=== PATIENT | male | born 1985 | race Caucasian/White ===

== ENCOUNTER 2018-01-19 17:39 | Emergency (ER) | payer SELFPAY | END 2018-01-19 20:39 | disposition home or self-care (01) | LOC: D.ER 17:39 | DX: S61.412A Laceration without foreign body of left hand, initial encounter (principal); W25.XXXA Contact with sharp glass, initial encounter; Y93.89 Activity, other specified; Y92.019 Unspecified place in single-family (private) house as the place of occurrence of the external cause; F17.200 Nicotine dependence, unspecified, uncomplicated ==

== ENCOUNTER 2019-06-21 12:24 | Inpatient (IN) | payer SELFPAY ==
[~2019-06-21] VITALS: Ht 182.9 cm; Wt 89.4 kg
[2019-06-21] MEDS ORDERED: PHENERGAN12.5 MG RC (12:29)
[2019-06-21 13:10] LABS: BASOPHILS 0.1 % (0-2); EOSINOPHILS 0 % (0-7); HEMATOCRIT 47.3 % (42.0-54.0); HEMOGLOBIN 18.1 g/dL (13.5-17.5); IMMATURE GRANULOCYTES 0.2 % (0-5); LYMPHOCYTES 11.6 % (15-50); MCH 34.4 pg (26.0-34.0); MCHC 38.3 g/dL (31.0-37.0); MCV 89.9 fL (80.0-100.0); MEAN PLATELET VOLUME 12.5 fL (7.4-10.4); MONOCYTES 11.8 % (2-11); NEUTROPHILS 76.3 % (40-80); PLATELET COUNT 208 10x3/uL (130-400); RBC 5.26 10x6/uL (4.20-6.10); RDW 12.2 % (11.5-14.5); WBC 12.5 10x3/uL (4.8-10.8)
[2019-06-21 13:12] LABS: ALBUMIN 4.3 g/dL (3.4-5.0); ANION GAP 17.3 mmol/L (8-16); BILIRUBIN - TOTAL 1.2 mg/dL (0.2-1.3); CALCIUM 10.3 mg/dL (8.5-10.1); CARBON DIOXIDE 30.8 mmol/L (21.0-32.0); CREATININE - SERUM 6.4 mg/dL (0.6-1.3); POTASSIUM - SERUM 3.1 mmol/L (3.5-5.1); PROTEIN - SERUM 8.7 g/dL (6.4-8.2)
[2019-06-21 13:33] LABS: TROPONIN-I 0.093 ng/mL (0.000-0.060)
[2019-06-21 14:28] LABS: CKMB 6.2 U/L (0.0-3.6); CREATINE KINASE 1355 UL (21-232)
[2019-06-21 14:30] VITALS: BP 162/97
--- NOTE | 2019-06-21 14:30 | NUR ---
URINE SPEC OBTAINED, LABELED AT BS AND SENT TO LAB
[2019-06-21 15:01] LABS: APPEARANCE HAZY (CLEAR); BACTERIA MODERATE /hpf (NONE SEEN); BILIRUBIN NEGATIVE (NEGATIVE); COLOR YELLOW (YELLOW); EPITHELIAL CELLS OCC /hpf (0-5); GLUCOSE 500 mg/dL (NEGATIVE); KETONE NEGATIVE (NEGATIVE); MUCUS <1+ /lpf (NONE SEEN); NITRITE NEGATIVE (NEGATIVE); PROTEIN TRACE mg/dL (NEGATIVE); RED CELLS - URINE 0-5 /hpf (0-5); SPECIFIC GRAVITY 1.015 (1.005-1.020); UROBILINOGEN NORMAL (NORMAL); WHITE CELLS - URINE RARE /hpf (0-5)
[2019-06-21 15:30] VITALS: BP 160/91
[2019-06-21 16:27] VITALS: BP 165/95
--- NOTE | 2019-06-21 17:00 | NUR ---
VOIDED 500 ML CLEAR YELLOW URINE VIA URINAL
[2019-06-21 17:11] VITALS: BP 144/87
[2019-06-21 18:26] VITALS: BP 159/78
--- NOTE | 2019-06-21 18:28 | NUR ---
VOIDED 400 ML VIA URINAL
--- NOTE | 2019-06-21 18:42 | NUR ---
REPORT CALLED TO CARLOS MEJÍA
--- NOTE | 2019-06-21 18:59 | NUR ---
[id number]
--- NOTE | 2019-06-21 19:15 | NUR ---
RECEIVED PATIENT FROM ER VIA W/C. SELF TRANSFERED TO BED WITHOUT DIFFICULTY. PATIENT HAS IV TO RT FA WITH NS INFUSING NS@125ML/HR. FAMILY AT BEDSIDE. PATIENT GIVEN PILLOW AND WARM BLANKET, FRESH ICE WATER OFFERED. VSS. NO S/S OF DISTRESS OBSERVED, RR EVEN AND UNLABORED ON ROOM AIR. QUICK START, MED REC, ADULT HX COMPLETED. PATIENT DENIES FURTHER NEEDS AT THIS TIME. CL IN REACH, BED LOCKED AND LOWERED. WILL CTM.
[2019-06-21 22:41] VITALS: BP 138/75; BMI 26.7
--- NOTE | 2019-06-21 23:30 | NUR ---
PLACE TELE ON PATIENT. WILL CTM.
[2019-06-22] VITALS: BP 128/67
--- NOTE | 2019-06-22 07:20 | NUR ---
REPORT RECIEVED. PT SITTING UP IN BED EATING BREAKFAST. PT HAS A R FA PIV INFUSING NS @ 100. RR EVEN AND UNLABORED. NO DISTRESS NOTED. TELEMETRY ON. BED LOCKED AND IN LOWEST POSITION. CALL LIGHT WITHIN REACH. WILL CTM.
[2019-06-22 07:47] LABS: BASOPHILS 0 % (0-2); EOSINOPHILS 0.2 % (0-7); HEMATOCRIT 42.2 % (42.0-54.0); HEMOGLOBIN 15.3 g/dL (13.5-17.5); IMMATURE GRANULOCYTES 0.2 % (0-5); LYMPHOCYTES 18.8 % (15-50); MCH 33.8 pg (26.0-34.0); MCHC 36.3 g/dL (31.0-37.0); MEAN PLATELET VOLUME 12.3 fL (7.4-10.4); MONOCYTES 12.4 % (2-11); NEUTROPHILS 68.4 % (40-80); PLATELET COUNT 203 10x3/uL (130-400); RBC 4.52 10x6/uL (4.20-6.10); RDW 12.2 % (11.5-14.5); WBC 10.1 10x3/uL (4.8-10.8)
[2019-06-22 07:49] LABS: MCV 93.4 fL (80.0-100.0)
[2019-06-22 08:10] VITALS: BP 145/79
[2019-06-22 08:24] LABS: ALBUMIN 3.4 g/dL (3.4-5.0); ALKALINE PHOSPHATASE 74 U/L (46-116); BILIRUBIN - TOTAL 1.28 mg/dL (0.2-1.3); CALC OSMOLALITY 299 mosm/kg (275-300); CALCIUM 8.6 mg/dL (8.5-10.1); CARBON DIOXIDE 28.8 mmol/L (21.0-32.0); CHLORIDE - SERUM 104 mmol/L (98-107); GLUCOSE 98 mg/dL (74-106); MAGNESIUM - SERUM 2.5 mg/dL (1.8-2.4); PHOSPHOROUS 3.1 mg/dL (2.5-4.9); POTASSIUM - SERUM 3.3 mmol/L (3.5-5.1); SODIUM 141 mmol/L (136-145); TROPONIN-I 0.058 ng/mL (0.000-0.060); UREA NITROGEN 66 mg/dL (7-18)
[2019-06-22 08:26] LABS: ALT (SGPT) 35 U/L (10-68); CREATINE KINASE 626 UL (21-232); CREATININE - SERUM 3.3 mg/dL (0.6-1.3); eGFR NON AFRICAN AMERICAN 23 mL/min (90-120)
[2019-06-22 09:11] VITALS: Ht 182.9 cm; Wt 89.4 kg
[2019-06-22 09:44] LABS: CKMB 1.7 U/L (0.0-3.6); CREATINE KINASE 590 UL (21-232)
[2019-06-22 09:57] LABS: TROPONIN-I 0.075 ng/mL (0.000-0.060)
[2019-06-22 10:53] LABS: UDS - AMPHET NEGATIVE QUAL (NEGATIVE); UDS - BARB NEGATIVE QUAL (NEGATIVE); UDS - BENZO NEGATIVE QUAL (NEGATIVE); UDS - COCAINE NEGATIVE QUAL (NEGATIVE); UDS - OPIATE NEGATIVE QUAL (NEGATIVE); UDS - PCP NEGATIVE QUAL (NEGATIVE); UDS - THC POSITIVE QUAL (NEGATIVE)
--- NOTE | 2019-06-22 15:11 | NUR ---
I have reviewed this patient and I concur with the Shift Assessment completed by the Licensed Practical Nurse today this shift.
--- NOTE | 2019-06-22 19:30 | NUR ---
PATIENT RESTING IN BED WITH NO S/S OF DISTRESS. PATIENT DENIES NEEDS AT THIS TIME. BED IN LOWEST POSITION AND CALL LIGHT WITHIN REACH. ENCOURAGED THE PATIENT TO CALL IF HE HAS NEEDS. WILL CONTINUE TO MONITOR.
[2019-06-22 19:44] VITALS: BP 165/72
[2019-06-22 23:47] VITALS: BP 127/66
[2019-06-23 04:35] LABS: BASOPHILS 0.1 % (0-2); EOSINOPHILS 0.5 % (0-7); HEMATOCRIT 39.3 % (42.0-54.0); HEMOGLOBIN 13.9 g/dL (13.5-17.5); IMMATURE GRANULOCYTES 0.3 % (0-5); MCH 33.6 pg (26.0-34.0); MCHC 35.4 g/dL (31.0-37.0); MCV 94.9 fL (80.0-100.0); MONOCYTES 9.3 % (2-11); NEUTROPHILS 56.8 % (40-80); PLATELET COUNT 182 10x3/uL (130-400); RBC 4.14 10x6/uL (4.20-6.10); RDW 11.9 % (11.5-14.5); WBC 7.7 10x3/uL (4.8-10.8)
--- NOTE | 2019-06-23 04:35 | NUR ---
NOTIFIED BY TELE THAT PATIENT'S HR IS 40. PATIENT ASYMPTOMATIC AND STATES HE FEELS FINE
[2019-06-23 04:40] VITALS: BP 142/91
[2019-06-23 04:47] LABS: ANION GAP 10.1 mmol/L (8-16); CALCIUM 8.6 mg/dL (8.5-10.1); CARBON DIOXIDE 28.6 mmol/L (21.0-32.0); POTASSIUM - SERUM 3.7 mmol/L (3.5-5.1)
[2019-06-23 04:50] LABS: CREATININE - SERUM 1.9 mg/dL (0.6-1.3)
--- NOTE | 2019-06-23 07:30 | NUR ---
REPORT RECIEVED. PT SITTING UP IN BED EATTING BREAKFAST. RR EVEN AND UNLABORED. PT STATES HE IS STILL HAVING A HARD TIME EATTING A NORMAL DIET. BED LOCKED AND IN LOWEST POSITION, CALL LIGHT WITHIN REACH. PT HAS A R FA PIV INFUSING NS @ 100. WILL CTM
[2019-06-23 08:06] VITALS: BP 139/81
--- NOTE | 2019-06-23 10:42 | NUR ---
OFFERED TOBACCO QUITLINE-PT DECLINED.
--- NOTE | 2019-06-23 11:28 | NUR ---
DC PAPERWORK GONE OVER AND SIGNED WITH PT. ALL QUESTIONS ANSWERED. PIV REMOVED CATH TIP FULLY INTACT. TELEMETRY REMOVED AND WILL BE RETURNED. ALL VALUBLES REMOVED FROM ROOM PT TAKEN TO FRONT ENTRANCE VIA WHEELCHAIR. RELEASED WITH FAMILY PRESENT.
== END 2019-06-23 11:30 | disposition home or self-care (01) | DRG 683 ==
LOC: D.ER 12:24 → D.M3 18:26
PROVIDERS: Family Medicine; ADMIT Internal Medicine Nephrology; ATTEND Internal Medicine Nephrology
DX: N17.9 Acute kidney failure, unspecified (principal); M62.82 Rhabdomyolysis; E87.1 Hypo-osmolality and hyponatremia; F17.213 Nicotine dependence, cigarettes, with withdrawal; D75.89 Other specified diseases of blood and blood-forming organs; E87.6 Hypokalemia; E86.0 Dehydration; R73.9 Hyperglycemia, unspecified; I10 Essential (primary) hypertension